=== PATIENT | female | born 1970 | race Caucasian/White ===

== ENCOUNTER → 2018-11-17 | Outpatient (CLI) | payer BC, OTHER ==
--- NOTE | 2018-11-17 10:14 | REP ---
MR CERVICAL SPINE WITHOUT CONTRAST: HISTORY: Neck pain. Uncinate process and facet hypertrophy are present on the left at the C3-4 level. These findings produce moderate narrowing of the left C3 neural foramen. The right C3 neural foramen is patent. A disc bulge with associates osteophyte formation is present at the C5-6 level. There is minimal effacement of the thecal sac without spinal cord compression. Uncinate process hypertrophy is present on the left. This produces mild narrowing of the left C5 neural foramen. The right C5 neural foramen is patent. A disc bulge and small right paracentral intraforaminal disc protrusion are present at the C6-7 level. There is minimal effacement of the thecal sac without spinal cord compression. Uncinate process hypertrophy is present on the left. There is minimal and mild narrowing of the right and left C6 neural foraminal respectively. There is no other disc bulge or herniation. The remaining neural foramina are patent. The spinal cord is normal in signal intensity. Normal signal intensity is present in the cervical vertebral bodies. IMPRESSION: There is cervical spondylosis at the C3-4, C5-6, and C6-7 level without spinal cord compression. Electronically Signed by Gonzalo Tsang MD 11/17/2018 10:23 A
== END ==
LOC: M RAD 08:47
PROVIDERS: ATTEND Nurse Practitioner Family
DX: Z98.890 Other specified postprocedural states (principal); M47.892 Other spondylosis, cervical region; M50.20 Other cervical disc displacement, unspecified cervical region